=== PATIENT | female | born 1970 | race African-American/Black ===

== ENCOUNTER 2016-08-30 02:03 | Emergency (ER) | payer MEDICAID ==
[~2016-08-30] VITALS: Ht 167.6 cm; Wt 65.8 kg
[~2016-08-30 02:03] MED LIST: NKM
[2016-08-30] MEDS ORDERED: IBUPROFEN600 MG ORAL (02:52)
[2016-08-30] MEDS ORDERED: CYCLOBENZAPRINE10 MG ORAL (02:52)
[2016-08-30 03:13] VITALS: BP 128/74
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
[2016-08-30] MEDS ORDERED: Methocarbamol 750mg tab ORAL ONE (13:30)
[2016-08-30] MEDS ORDERED: Ketorolac 60mg Inj IM ONE (13:30)
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
== END 2016-08-30 03:15 | disposition home or self-care (01) ==
LOC: EDBD 02:03 → EMR 02:20
DX: S16.1XXA Strain of muscle, fascia and tendon at neck level, initial encounter (principal); V49.50XA Passenger injured in collision with unspecified motor vehicles in traffic accident, initial encounter; Y92.410 Unspecified street and highway as the place of occurrence of the external cause; M50.30 Other cervical disc degeneration, unspecified cervical region
CPT/HCPCS: 72020; 72040; 72050; 96372; 99284

== ENCOUNTER 2016-11-08 05:49 | Inpatient (IN) | payer OTHER ==
[2016-11-08] VITALS (10 sets, daily range): BP systolic 109–150; BP diastolic 63–93
[~2016-11-08] VITALS: Ht 167.6 cm; Wt 72.1 kg
[~2016-11-08 05:49] MED LIST changes: +CYCLOBENZAPRINE10 MG ORAL; +IBUPROFEN600 MG ORAL
[2016-11-08] MEDS ORDERED: Pantoprazole Inj IVP ONE (06:00)
[2016-11-08] MEDS ORDERED: Vancomycin 1gm/D5W 275ml IVPB ONE ×2 (06:00)
[2016-11-08] MEDS ORDERED: Thrombin 5000 units TOPIC ONE (06:24)
[2016-11-08] MEDS ORDERED: Vancomycin 1gm inj IVPB ONE (06:25)
[2016-11-08] MEDS ORDERED: Bacitracin Oint 15gm Tube TOPIC ONE (06:25)
[2016-11-08] MEDS ORDERED: Thrombin 5000 units spray kit TOPIC ONE (06:26)
[2016-11-08] MEDS ORDERED: Gelfoam Absorbable 1gm powder pkt TOPIC ONE (06:26)
[2016-11-08] MEDS ORDERED: Bupivacaine w/Epi 0.5% 30ml Vial INJ ONE (06:26)
[2016-11-08] MEDS ORDERED: Bacitracin 50000 Units Vial ONE (06:27)
--- NOTE | 2016-11-08 07:22 | Pre-Procedure Note/Attestation ---
Pre-Procedure Note/Attestation Complete Prior to Procedure Planned Procedure: bilateral Procedure Narrative: Posterior cervical decompressive surgery C3 to C6 partial C7, lateral mass fixation C3 to C6 and posterolateral arthrodesis with allograft, autograft and iliac crest bone marrow aspiration. Attestation I attest that I discussed the nature of the procedure; its benefits; risks and complications; and alternatives (and the risks and benefits of such alternatives ), prior to the procedure, with the patient (or the patient's legal insurance sales representative). I attest that, if there was a reasonable possibility of needing a blood transfusion, the patient (or the patient's legal insurance sales representative) was given the [place] Department of Health Services standardized written summary, pursuant to the Bubba Samuel Blood Safety Act ([place] Health and Safety Code # 1645, as amended). I attest that I re-evaluated the patient just prior to the surgery and that there has been no change in the patient's H&P, except as documented below: JC BOWDEN Nov 08, 2016 07:22
[2016-11-08] MEDS ORDERED: Propofol 10mg/ml 20ml IV ONE (07:30)
[2016-11-08] MEDS ORDERED: Zemuron 50mg/5ml Inj IV ONE (07:30)
[2016-11-08] MEDS ORDERED: Sterile Water Irrig 1000ml IRRIG ONE (07:30)
[2016-11-08] MEDS ORDERED: Dexamethasone 4mg/ml vial ONE (07:30)
[2016-11-08] MEDS ORDERED: LR 1000ml ONE (07:30)
[2016-11-08] MEDS ORDERED: NS Irrig 1000ml ONE (07:30)
[2016-11-08] MEDS ORDERED: Midazolam 2mg/2ml Inj ONE (07:30)
[2016-11-08] MEDS ORDERED: Morphine Sulfate 10mg/ml Inj ONE (07:30)
[2016-11-08] MEDS ORDERED: fentaNYL 250mcg/5ml ONE (07:30)
--- NOTE | 2016-11-08 09:13 | Anethesia Preoperative Eval ---
Anesthesia Pre-op PMH/ROS General Date of Evaluation: Nov 08, 2016 Time of Evaluation: 07:00 Anesthesiologist: tonja ASA Score: ASA 3 Mallampati Score Class I : Soft palate, uvula, fauces, pillars visible Class II: Soft palate, uvula, fauces visible Class III: Soft palate, base of uvula visible Class IV: Only hard plate visible Mallampati Classification: Class I Surgeon: nancy Diagnosis: cervical herniation Surgical Procedure: Post C3-7 decompression and Fusion Anesthesia History: none Family History: no anesthesia problems Allergies: Coded Allergies: No Known Allergies (Unverified , 08/30/16) Past Medical History Other: other Anesthesia Pre-op Phys. Exam Physician Exam Last Vital Signs Date Time Temp Pulse Resp B/P Pulse Ox O2 Delivery O2 Flow Rate FiO2 11/08/16 06:50 97.5 65 18 130/88 99 Room Air Anesthesia Pre-op A/P Labs Urine Test Test 11/08/16 06:00 Urine HCG, Qualitative Negative Andrade Reno MD Nov 08, 2016 09:13
[2016-11-08] MEDS ORDERED: Hydromorphone 0.5mg/0.5ml inj IVP PRN (09:15)
[2016-11-08] MEDS ORDERED: Midazolam 2mg/2ml Inj IVP PRN (09:15)
[2016-11-08] MEDS ORDERED: Ketorolac 30mg Inj IV PRN (09:15)
[2016-11-08] MEDS ORDERED: fentaNYL 100 mcg/2 mL IV PRN (09:15)
--- NOTE | 2016-11-08 12:32 | Immediate Post-Op Evaluation ---
Immediate Post-Op Evalulation Immediate Post-Op Evalulation Procedure: post C3-7 Decompression and Fusion Date of Evaluation: Nov 08, 2016 Time of Evaluation: 12:32 IV Fluids: 800 Estimated Blood Loss: 100 Urinary Output: 300 Nausea: No Vomiting: No Patient Status: awake Hydration Status: adequate Given Within 1 Hr of Incision: Yes Andrade Reno MD Nov 08, 2016 12:32
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
[2016-11-08] MEDS ORDERED: Norco 7.5mg/325mg tab ORAL PRN (13:00)
[2016-11-08] MEDS ORDERED: Cyclobenzaprine 10mg Tab ORAL PRN (13:00)
[2016-11-08] MEDS ORDERED: Milk of Magnesia 30ml Ud ORAL PRN (13:00)
[2016-11-08] MEDS ORDERED: Norco 5mg/325mg tab ORAL PRN (13:00)
[2016-11-08] MEDS ORDERED: HYDROmorphone 1mg/ml Carpuject SUBQ PRN (13:00)
--- NOTE | 2016-11-08 13:08 | General Progress Note ---
Progress Note Progress Note Neurosurgery POST OP note S/ Comfortable O/ VS: Last 24 Hour Vital Signs Date Time Temp Pulse Resp B/P Pulse Ox O2 Delivery O2 Flow Rate FiO2 11/08/16 12:42 75 19 127/67 100 Simple Mask 6.0 11/08/16 12:37 78 14 109/64 99 Simple Mask 6.0 11/08/16 12:32 97.6 78 19 116/67 99 Simple Mask 6.0 11/08/16 06:50 97.5 65 18 130/88 99 Room Air Arousable Moves all extremities well Dressing dry Doing well Admit Family updated JC BOWDEN Nov 08, 2016 13:08
[2016-11-08] MEDS: NS w/KCl 20mEq 1,000 ML IV SCH (16:03)
[2016-11-08] MEDS: Pericolace tab ORAL SCH (17:58)
[2016-11-08] MEDS: Vancomycin 750 MG in D5W 275 ML IVPB SCH (17:58)
[2016-11-08] MEDS: Docusate 100mg cap ORAL SCH (17:58)
[2016-11-09] VITALS: BP 134/87
[2016-11-09 04:00] VITALS: BP 141/95
[2016-11-09] MEDS: NS w/KCl 20mEq 1,000 ML IV SCH (04:27)
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
[2016-11-09] MEDS: Vancomycin 750 MG in D5W 275 ML IVPB SCH (06:10)
[2016-11-09 06:31] LABS: MEAN CORPUSCULAR HEMOGLOBIN 34.7 PG (27.0-31.0); MEAN CORPUSCULAR VOLUME 102 FL (80-99); MEAN PLATELET VOLUME 6.5 FL (6.5-10.1); PLATELET COUNT 304 K/UL (150-450); RED BLOOD COUNT 3.45 M/UL (4.20-5.40); RED CELL DISTRIBUTION WIDTH 11.8 % (11.6-14.8); WHITE BLOOD COUNT 15.7 K/UL (4.8-10.8)
[2016-11-09 06:46] LABS: ANION GAP 15 (5-15); CALCIUM 9.3 mg/dL (8.6-10.2); CARBON DIOXIDE 21 mEQ/L (20-30); CHLORIDE 102 mEQ/L (98-107); CREATININE 0.5 mg/dL (0.5-0.9); GLOMERULAR FILTRATION RATE > 60 mL/min (>60); HEMOLYSIS 0; MAGNESIUM 1.8 mg/dL (1.7-2.5); POTASSIUM 4.8 mEQ/L (3.4-4.9); SODIUM 138 mEQ/L (135-145)
--- NOTE | 2016-11-09 07:17 | 48 Hour Post Anesthesia Eval ---
Post Anesthesia Evaluation Procedure: post C3-7 Decompression and Fusion Date of Evaluation: Nov 09, 2016 Time of Evaluation: 06:17 Blood Pressure Systolic: 141 0: 95 Pulse Rate: 86 Respiratory Rate: 18 Temperature (Fahrenheit): 99 O2 Sat by Pulse Oximetry: 100 Airway: patent Nausea: No Vomiting: No Pain Intensity: 2 Hydration Status: adequate Cardiopulmonary Status: Stable Mental Status/LOC: patient returned to baseline Follow-up Care/Observations: 0 Post-Anesthesia Complications: 0 Follow-up care needed: N/A Davidson Saini MD Nov 09, 2016 07:16
[2016-11-09 08:00] VITALS: BP 141/79
[2016-11-09] MEDS: Pericolace tab ORAL SCH ×2 (08:06→18:50)
[2016-11-09] MEDS: Docusate 100mg cap ORAL SCH ×2 (08:06→18:50)
[2016-11-09] MEDS: Norco 7.5mg/325mg tab ORAL PRN ×2 (08:09→16:40)
--- NOTE | 2016-11-09 09:15 | General Progress Note ---
Assessment/Plan Status Narrative s/p complex cervicl aspine surgery history of HIV Assessment/Plan perioperative antibiotic prophyalxis post op dvt prophyalxis pt ot paincontrol HIV presista 600 bid norvior 100 bid maravioric 150 bid descovy 200/25 daily will monitor closleyu discussed with pharmacy if not on formularly family to bring medicaiotn Subjective Date patient seen: Nov 09, 2016 Time patient seen: 09:13 Constitutional: Reports: no symptoms HEENT: Reports: no symptoms Cardiovascular: Reports: no symptoms Respiratory: Reports: no symptoms Allergies: Coded Allergies: No Known Allergies (Unverified , 08/30/16) Objective Last 24 Hour Vital Signs Date Time Temp Pulse Resp B/P Pulse Ox O2 Delivery O2 Flow Rate FiO2 11/09/16 08:00 97.0 75 19 141/79 97 Room Air 11/09/16 07:16 86 18 100 11/09/16 04:00 99.0 86 18 141/95 100 Room Air 11/09/16 00:00 97.0 68 19 134/87 97 Room Air 11/08/16 20:00 96.3 68 18 150/93 98 Room Air 11/08/16 13:55 98.3 68 11 127/68 100 Nasal Cannula 3.0 11/08/16 13:42 74 20 130/72 100 Nasal Cannula 3.0 11/08/16 13:25 77 20 133/74 100 Nasal Cannula 3.0 11/08/16 13:10 73 12 133/69 100 Nasal Cannula 3.0 11/08/16 12:55 68 15 118/63 100 Nasal Cannula 3.0 11/08/16 12:42 75 19 127/67 100 Simple Mask 6.0 11/08/16 12:37 78 14 109/64 99 Simple Mask 6.0 11/08/16 12:32 97.6 78 19 116/67 99 Simple Mask 6.0 Intake and Output 11/08/16 11/09/16 19:00 07:00 Intake Total 1240 ml 1180 ml Output Total 400 ml 2800 ml Balance 840 ml -1620 ml Intake Oral 240 ml 480 ml IV Total 1000 ml 700 ml Output Urine Total 300 ml 2800 ml Estimated Blood Loss 100 ml Laboratory Tests 11/09/16 05:30: White Blood Count 15.7H, Red Blood Count 3.45L, Hemoglobin 11.9L, Hematocrit 35.1L, Mean Corpuscular Volume 102H, Mean Corpuscular Hemoglobin 34.7H, Mean Corpuscular Hemoglobin Concent 34.0, Red Cell Distribution Width 11.8, Platelet Count 304, Mean Platelet Volume 6.5, Neutrophils (%) (Auto) , Lymphocytes (%) ( Auto) , Monocytes (%) (Auto) , Eosinophils (%) (Auto) , Basophils (%) (Auto) , Sodium Level 138, Potassium Level 4.8, Chloride Level 102, Carbon Dioxide Level 21, Anion Gap 15, Blood Urea Nitrogen 11, Creatinine 0.5, Estimat Glomerular Filtration Rate > 60, Glucose Level 130H, Calcium Level 9.3, Magnesium Level 1.8 Height (Feet): 5 Height (Inches): 6.00 Weight (Pounds): 159 General Appearance: WD/WN Neck: other - has soft cervicla collar Cardiovascular: normal rate, regular rhythm, no JVD Respiratory/Chest: lungs clear Abdomen: soft LINDA CHAU Nov 09, 2016 09:15
--- NOTE | 2016-11-09 10:17 | Diagnostic Imaging Report ---
Indication: PAIN, intraoperative Technique: Digital intraoperative images Comparison: 08/30/2016 Findings: Intraoperative images demonstrate localizing tool posterior to the C3-4 disc. Subsequent images document laminectomies and posterior fusion of C3-C6 Impression: Intraoperative imaging, as described
[2016-11-09] MEDS ORDERED: Darunavir 600mg tab ORAL SCH (11:30)
[2016-11-09] MEDS ORDERED: Ritonavir 100mg tab ORAL SCH (11:30)
[2016-11-09 12:00] VITALS: BP 142/92
--- NOTE | 2016-11-09 17:15 | General Progress Note ---
Progress Note Progress Note Neurosurgery POD#1 S/Left arm weakness and numbness resolved. Ambulated. Pain under control with oral meds. Ambulated with improvement in gait. O/ Vs: Last 24 Hour Vital Signs Date Time Temp Pulse Resp B/P Pulse Ox O2 Delivery O2 Flow Rate FiO2 11/09/16 12:00 97.2 75 20 142/92 98 Room Air 11/09/16 08:00 97.0 75 19 141/79 97 Room Air 11/09/16 07:16 86 18 100 11/09/16 04:00 99.0 86 18 141/95 100 Room Air 11/09/16 00:00 97.0 68 19 134/87 97 Room Air 11/08/16 20:00 96.3 68 18 150/93 98 Room Air Alert and oriented x 4. Smiling in good spirits. Incision dressing completely dry in Cervical collar Significant improvement in Lhand photographer scientific and strength. Labs: Laboratory Tests Test 11/09/16 05:30 White Blood Count 15.7 K/UL (4.8-10.8) H Red Blood Count 3.45 M/UL (4.20-5.40) L Hemoglobin 11.9 G/DL (12.0-16.0) L Hematocrit 35.1 % (37.0-47.0) L Mean Corpuscular Volume 102 FL (80-99) H Mean Corpuscular Hemoglobin 34.7 PG (27.0-31.0) H Mean Corpuscular Hemoglobin Concent 34.0 G/DL (32.0-36.0) Red Cell Distribution Width 11.8 % (11.6-14.8) Platelet Count 304 K/UL (150-450) Mean Platelet Volume 6.5 FL (6.5-10.1) Neutrophils (%) (Auto) % (45.0-75.0) Lymphocytes (%) (Auto) % (20.0-45.0) Monocytes (%) (Auto) % (1.0-10.0) Eosinophils (%) (Auto) % (0.0-3.0) Basophils (%) (Auto) % (0.0-2.0) Sodium Level 138 mEQ/L (135-145) Potassium Level 4.8 mEQ/L (3.4-4.9) Chloride Level 102 mEQ/L (98-107) Carbon Dioxide Level 21 mEQ/L (20-30) Anion Gap 15 (5-15) Blood Urea Nitrogen 11 mg/dL (7-23) Creatinine 0.5 mg/dL (0.5-0.9) Estimat Glomerular Filtration Rate > 60 mL/min (>60) Glucose Level 130 mg/dL (74-106) H Calcium Level 9.3 mg/dL (8.6-10.2) Magnesium Level 1.8 mg/dL (1.7-2.5) doing well discharge instructions reviewed with pt and nursing d/c planning Internal med f/u appreciated. JC BOWDEN Nov 09, 2016 17:15
[2016-11-09] MEDS ORDERED: NORCO 10-325 T1 EACH ORAL (17:35)
[2016-11-09] MEDS ORDERED: PREZISTA600 MG ORAL (17:37)
[2016-11-09] MEDS ORDERED: NORVIR100 MG ORAL (17:37)
[2016-11-09] MEDS ORDERED: SELZENTRY150 MG ORAL (17:37)
[2016-11-09] MEDS ORDERED: COLACE100 MG ORAL (17:37)
[2016-11-09] MEDS ORDERED: DESCOVY 200-251 EACH PO (17:38)
[2016-11-09] MEDS ORDERED: MARAVIROC 150 MG ORAL SCH ×4 (18:00)
[2016-11-09 20:00] VITALS: BP 149/86
[2016-11-09] MEDS ORDERED: Tubing IV Secondary IV ONE (22:41)
[2016-11-10] MEDS ORDERED: DESCOVY ORAL SCH (09:00)
--- NOTE | 2016-11-10 16:15 | Discharge Summary ---
DATE OF ADMISSION: 11/08/2016 DATE OF DISCHARGE: 11/09/2016 DISCHARGE DIAGNOSIS: Status post posterior cervical decompressive surgery C3 through C7 with lateral mass fixation C3 through C6. HISTORY OF PRESENT ILLNESS: Please refer to the chart for a detailed HPI. HOSPITAL COURSE: The patient was admitted on 11/08/2016, underwent an uneventful posterior cervical decompressive surgery lateral mass fixation. She has done very well postoperatively. 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 She is ambulating. She is tolerating oral pain medications. She is already tolerating full diet. She is very happy with the results of the operation. She is being discharged home with appropriate discharge instructions. DISPOSITION: Home. DISCHARGE INSTRUCTION: The patient and her family and significant others were educated regarding wound care. In case of fever more than 101, chills, drainage from the incision, and redness, the patient is asked to call Dr. Kirby or go to the nearest ER. DISCHARGE INSTRUCTIONS: Included regular diet. She is to avoid NSAID. She is to wear her cervical collar at all times except for shower. She is to avoid turning her neck, sudden movements of the neck, lifting type, bending, or twisting type activities. DISCHARGE FOLLOW UP: Dr. Kirby in 2 weeks. This consultation included Internal Medicine and Physical Therapy. COMPLICATIONS: None. Tate Kirby M.D. DR: SHRUTI JOB#: [id number] CC:
== END 2016-11-09 22:42 | disposition home or self-care (01) | DRG 471 ==
LOC: SDSOVERFLO 05:49 → 3E 13:20
DX: M50.11 Cervical disc disorder with radiculopathy, high cervical region (principal); B20 Human immunodeficiency virus [HIV] disease; M50.01 Cervical disc disorder with myelopathy, high cervical region; V89.2XXS Person injured in unspecified motor-vehicle accident, traffic, sequela; F17.200 Nicotine dependence, unspecified, uncomplicated
CPT/HCPCS: 36415; 72040; 76001; 80048; 81025; 83735; 85025; 86850; 86900; 86901; 87081; C9399; J2250

== ENCOUNTER 2020-01-28 16:43 | Emergency (ER) | payer MEDICAID, OTHER ==
[~2020-01-28] VITALS: Ht 167.6 cm; Wt 68.0 kg
[~2020-01-28 16:43] MED LIST changes: +COLACE100 MG ORAL; +DESCOVY 200-251 EACH PO; +NORCO 10-325 T1 EACH ORAL; +NORVIR100 MG ORAL; +PREZISTA600 MG ORAL; +SELZENTRY150 MG ORAL
[2020-01-28 16:55] VITALS: BP 114/71
[2020-01-28] MEDS ORDERED: Omnipaque-300 100ml vial INJ PRN (17:15)
[2020-01-28] MEDS ORDERED: Morphine Sulfate 4mg/ml Inj (IV USE ONLY) IVP ONE (17:15)
[2020-01-28 17:37] LABS: BASOPHILS % (AUTO) 1.6 % (0.0-2.0); HEMATOCRIT 38.8 % (37.0-47.0); HEMOGLOBIN 12.7 G/DL (12.0-16.0); LYMPHOCYTES % (AUTO) 32.8 % (20.0-45.0); MEAN CORPUSCULAR VOLUME 95 FL (80-99); MONOCYTES % (AUTO) 4.1 % (1.0-10.0); NEUTROPHILS % (AUTO) 56.5 % (45.0-75.0); PLATELET COUNT 449 K/UL (150-450); RED BLOOD COUNT 4.08 M/UL (4.20-5.40)
[2020-01-28 17:38] LABS: APPEARANCE,URINE SLIGHTLY CLOUDY; BILIRUBIN, URINE NEGATIVE (NEGATIVE); GLUCOSE, URINE (UA) NEGATIVE (NEGATIVE); KETONES,URINE 2+ (NEGATIVE); LEUKOCYTE ESTERASE ,URINE 1+ (NEGATIVE); NITRITE,URINE NEGATIVE (NEGATIVE); PH,URINE 5 (4.5-8.0); PROTEIN,URINE NEGATIVE (NEGATIVE); UROBILINOGEN,URINE 1 MG/DL (0.0-1.0)
[2020-01-28 17:40] LABS: COLOR,URINE YELLOW
[2020-01-28 17:45] LABS: ANION GAP 9 mmol/L (5-15); BLOOD UREA NITROGEN 10 mg/dL (7-18); CALCIUM 9.2 MG/DL (8.5-10.1); CARBON DIOXIDE 24 MMOL/L (21-32); CHLORIDE 106 MMOL/L (98-107); CREATININE 0.8 MG/DL (0.55-1.30); POTASSIUM 3.9 MMOL/L (3.5-5.1); SODIUM 139 MMOL/L (136-145)
[2020-01-28 17:49] LABS: ALANINE AMINOTRANSFERASE 12 U/L (12-78); ALBUMIN 3.2 G/DL (3.4-5.0); ALBUMIN/GLOBULIN RATIO 0.7 (1.0-2.7); ALKALINE PHOSPHATASE 87 U/L (46-116); ASPARTATE AMINO TRANSFERASE 13 U/L (15-37); BILIRUBIN,TOTAL 0.4 MG/DL (0.2-1.0)
--- NOTE | 2020-01-28 18:35 | Emergency Room Report ---
History of Present Illness General Chief Complaint: Lower Back Pain or Injury Source: Patient Present Illness HPI 49 YO female who transitioned from male over 20 years ago, presents to the ED c/o 02/05 in severity right flank pain that is reproducible upon palpation and movement since yesterday. Pt. reports constant in nature. She denies nausea or vomiting. She denies blood in the urine or urinary frequency. She denies pain with breathing or SOB. She denies CP. She denies abdominal tenderness. She denies urinary frequency, urgency or dysuria. She denies trauma or fall. She denies midline back pain. Allergies: Coded Allergies: No Known Allergies (Unverified , 08/30/16) COVID-19 Screening Contact w/high risk pt: No Experienced COVID-19 symptoms?: No COVID-19 Testing performed [employer]: Yes COVID-19 Screening: Negative COVID-19 COVID-19 Testing Source: November 2018 [facility] Patient History Past Medical History: see triage record, HIV Past Surgical History: other - november 2019 breast reduction Pertinent Family History: none Now: No Reviewed Nursing Documentation: PMH: Agreed; PSxH: Agreed Nursing Documentation-PMH Past Medical History: No Stated History Hx Cardiac Problems: No Hx Cancer: No Hx Gastrointestinal Problems: No Hx Neurological Problems: No Review of Systems All Other Systems: negative except mentioned in HPI Physical Exam Vital Signs Date Time Temp Pulse Resp B/P (MAP) Pulse Ox O2 Delivery O2 Flow Rate FiO2 01/28/20 16:49 97.9 80 14 114/71 (85) 100 Room Air Sp02 EP Interpretation: reviewed, normal General Appearance: no apparent distress, alert, GCS 15, non-toxic Head: normocephalic, atraumatic Eyes: bilateral eye normal inspection, bilateral eye PERRL ENT: hearing grossly normal, normal voice Neck: full range of motion Respiratory: chest non-tender, lungs clear, normal breath sounds, no re spiratory distress, no accessory muscle use, speaking full sentences Cardiovascular #1: regular rate, rhythm, no edema Gastrointestinal: normal bowel sounds, non tender, soft, non-distended, no guarding, other - no appreciable corey's sign Genitourinary: normal inspection, CVA tenderness (R) Musculoskeletal: normal range of motion, gait/station normal, non-tender - TTP right flank and lower posteriolateral rib tenderness on the right. , tender Neurologic: alert, motor strength/tone normal, oriented x3, sensory intact, responsive, speech normal Psychiatric: judgement/insight normal Skin: no rash, normal color Medical Decision Making PA Attestation Dr. Gutierrez is my supervising Physician whom patient management has been discussed with. Diagnostic Impression: Primary Impression: Intercostal muscle strain Qualified Codes: S29.011A - Strain of muscle and tendon of front wall of thorax, initial encounter ER Course 49 YO female who transitioned from male over 20 years ago, presents to the ED c /o 02/05 in severity right flank pain that is reproducible upon palpation and movement since yesterday. Pt. reports constant in nature. She denies nausea or vomiting. She denies blood in the urine or urinary frequency. She denies pain with breathing or SOB. She denies CP. She denies abdominal tenderness. She denies urinary frequency, urgency or dysuria. She denies trauma or fall. She denies midline back pain. Ddx considered but are not limited to Diverticulitis, acute appendicitis, diarrhea,UC, PUD, GE, pancreatitis, gallstone, kidney stone, pyelonephritis, UTI, obstruction. Vital signs: are WNL, pt. is afebrile H&PE are most consistent with muscle strain vs. renal calculi. ORDERS: -CBC, CMP, lipase:WNL - UA: WNL - CT abdomen and pelvis with contrast: IMPRESSION: No acute abnormality within the abdomen or pelvis. ED INTERVENTIONS: -- 1000NS --4mg Morphine for pain -4mg Zofran IV DISCHARGE: At this time pt. is stable for d/c to home. Will provide printed patient care instructions, and any necessary prescriptions. Care plan and follow up instructions have been discussed with the patient prior to discharge. Labs Test 01/28/20 17:16 White Blood Count 7.0 K/UL (4.8-10.8) Red Blood Count 4.08 M/UL (4.20-5.40) Hemoglobin 12.7 G/DL (12.0-16.0) Hematocrit 38.8 % (37.0-47.0) Mean Corpuscular Volume 95 FL (80-99) Mean Corpuscular Hemoglobin 31.1 PG (27.0-31.0) Mean Corpuscular Hemoglobin Concent 32.7 G/DL (32.0-36.0) Red Cell Distribution Width 14.0 % (11.6-14.8) Platelet Count 449 K/UL (150-450) Mean Platelet Volume 6.3 FL (6.5-10.1) Neutrophils (%) (Auto) 56.5 % (45.0-75.0) Lymphocytes (%) (Auto) 32.8 % (20.0-45.0) Monocytes (%) (Auto) 4.1 % (1.0-10.0) Eosinophils (%) (Auto) 5.0 % (0.0-3.0) Basophils (%) (Auto) 1.6 % (0.0-2.0) Urine Color Yellow Urine Appearance Slightly cloudy Urine pH 5 (4.5-8.0) Urine Specific [place] 1.020 (1.005-1.035) Urine Protein Negative (NEGATIVE) Urine Glucose (UA) Negative (NEGATIVE) Urine Ketones 2+ (NEGATIVE) Urine Blood Negative (NEGATIVE) Urine Nitrite Negative (NEGATIVE) Urine Bilirubin Negative (NEGATIVE) Urine Urobilinogen 1 MG/DL (0.0-1.0) Urine Leukocyte Esterase 1+ (NEGATIVE) Urine RBC 0-2 /HPF (0 - 2) Urine WBC 2-4 /HPF (0 - 2) Urine Squamous Epithelial Cells Few /LPF (NONE/OCC) Urine Bacteria Few /HPF (NONE) Sodium Level 139 MMOL/L (136-145) Potassium Level 3.9 MMOL/L (3.5-5.1) Chloride Level 106 MMOL/L (98-107) Carbon Dioxide Level 24 MMOL/L (21-32) Anion Gap 9 mmol/L (5-15) Blood Urea Nitrogen 10 mg/dL (7-18) Creatinine 0.8 MG/DL (0.55-1.30) Estimat Glomerular Filtration Rate > 60 mL/min (>60) Glucose Level 84 MG/DL (74-106) Calcium Level 9.2 MG/DL (8.5-10.1) Total Bilirubin 0.4 MG/DL (0.2-1.0) Aspartate Amino Transf (AST/SGOT) 13 U/L (15-37) Alanine Aminotransferase (ALT/SGPT) 12 U/L (12-78) Alkaline Phosphatase 87 U/L (46-116) Total Protein 7.7 G/DL (6.4-8.2) Albumin 3.2 G/DL (3.4-5.0) Globulin 4.5 g/dL Albumin/Globulin Ratio 0.7 (1.0-2.7) Lipase 45 U/L (73-393) CT/MRI/US Diagnostic Results CT/MRI/US Diagnostic Results : Imaging Test Ordered: CT Abdomen and Pelvis w. Contrast Impression "IMPRESSION: No acute abnormality within the abdomen or pelvis. " .--Per official radiology report- Please see report for specific details. Last Vital Signs Date Time Temp Pulse Resp B/P (MAP) Pulse Ox O2 Delivery O2 Flow Rate FiO2 01/28/20 17:50 97.9 01/28/20 16:55 80 14 114/71 100 Room Air Status: improved Disposition: HOME, SELF-CARE Condition: Stable Scripts Ibuprofen* (MOTRIN*) 600 Mg Tablet 600 MG ORAL THREE TIMES A DAY, #20 TAB Prov: Tori Price 01/28/20 Cyclobenzaprine Hcl* (FLEXERIL*) 10 Mg Tablet 10 MG ORAL THREE TIMES A DAY for 7 Days, #21 TAB Prov: Tori Price 01/28/20 Referrals: [facility],REFERRING (PCP) Patient Instructions: Muscle Strain, [id number] Additional Instructions: Take medications as directed. Do not drink alcohol, drive, or operate heavy machinery while taking Robaxin (Muscle Relaxers) as this may cause drowsiness. Follow up with a Primary Care Provider in 3-5 days, even if your symptoms have resolved. Return sooner to ED if new symptoms occur, or current symptoms become worse. - Please note that this Emergency Department Report was dictated using [employer] home sales representative technology software, occasionally this can lead to erroneous entry secondary to interpretation by the dictation equipment. Tori Price Jan 28, 2020 18:35
--- NOTE | 2020-01-28 18:53 | Diagnostic Imaging Report ---
EXAM: CT Abdomen and Pelvis With Intravenous Contrast CLINICAL HISTORY: PAIN TECHNIQUE: Axial computed tomography images of the abdomen and pelvis with intravenous contrast. CTDI is 4.5 mGy and DLP is 225.2 mGy-cm. One or more of the following dose reduction techniques were used: automated exposure control, adjustment of the mA and/or kV according to patient size, use of iterative reconstruction technique. COMPARISON: No relevant prior studies available. FINDINGS: Lung bases: Unremarkable. ABDOMEN: Liver: Unremarkable. Gallbladder and bile ducts: Unremarkable. Pancreas: Unremarkable. Spleen: Calcified granulomas within the spleen. Adrenals: Unremarkable. Kidneys and ureters: No renal or ureteral stones. No hydronephrosis. No suspicious lesions within the kidneys. Stomach and bowel: Unremarkable. PELVIS: Appendix: No findings to suggest acute appendicitis. Bladder: Unremarkable. Reproductive: Testicles within the inguinal canals. ABDOMEN and PELVIS: Intraperitoneal space: Unremarkable. No free air. No significant fluid collection. Bones/joints: No acute fracture. Soft tissues: Cosmetic changes in the subcutaneous fat of the buttocks. Vasculature: Unremarkable. Lymph nodes: Unremarkable. IMPRESSION: No acute abnormality within the abdomen or pelvis.
[2020-01-28] MEDS ORDERED: CYCLOBENZAPRINE10 MG ORAL (19:13)
[2020-01-28] MEDS ORDERED: IBUPROFEN600 M1 ORAL (19:13)
[2020-01-28 19:19] VITALS: BP 121/76
== END 2020-01-28 20:41 | disposition home or self-care (01) ==
LOC: EMR 17:18
DX: S29.011A Strain of muscle and tendon of front wall of thorax, initial encounter (principal); B20 Human immunodeficiency virus [HIV] disease; X58.XXXA Exposure to other specified factors, initial encounter; Y92.9 Unspecified place or not applicable
CPT/HCPCS: 36415; 74177; 80053; 81003; 83690; 85025; 96374; 96375; J2270; J2405; Q9965; Z7502; 99284